=== PATIENT | male | born 1995 | race Caucasian/White ===

== ENCOUNTER → 2018-05-04 | Outpatient (CLI) | payer OTHER ==
--- NOTE | 2018-05-05 13:24 | CPEEG ---
[f rep st] ELECTROENCEPHALOGRAM DATE OF STUDY: DATE OF INTERPRETATION: 05/04/2018. INTERPRETATION: Normal EEG during wakefulness and sleep. There were no potentially epileptogenic ab normalities present in the recording. REPORT: This EEG contains 9-10 Hz alpha activity at the posterior head regions. There was no abnorm al activation at rest, during photic stimulation or hyperventilation. The patient became drowsy and fell asleep intermittently during the study. There was no abnormal activation during drowsiness, sle ep, or during times of arousal. /[id number]/MODL
== END ==
LOC: FCPNEURO 13:46
PROVIDERS: ATTEND Physician Assistant Medical
DX: R56.9 Unspecified convulsions (principal)